=== PATIENT | female | born 1940 | race Caucasian/White ===

== ENCOUNTER 2024-11-30 14:39 | Emergency (ER) | payer MEDICARE ==
[~2024-11-30] VITALS: Ht 152.4 cm; Wt 51.3 kg
[2024-11-30 14:40] VITALS: PULSE 82; RESP 16; TEMP 98.6; O2SAT 98
== END 2024-11-30 16:24 | disposition home or self-care (01) ==
LOC: FSED 14:43
DX: M79.661 Pain in right lower leg (principal); I10 Essential (primary) hypertension
CPT/HCPCS: 80053; 85025; 85379; 99283